=== PATIENT | female | born 1960 | race Caucasian/White ===

== ENCOUNTER → 2016-08-10 | Outpatient (CLI) | payer BC ==
--- NOTE | 2016-08-10 07:58 | MR ---
EXAMINATION TYPE: MR knee RT wo con DATE OF EXAM: 08/10/2016 7:20 AM COMPARISON: NONE HISTORY: Right knee pain TECHNIQUE: Multiplanar, multisequence imaging of the right knee is performed without IV contrast. FINDINGS: MEDIAL MENISCUS: Anterior and posterior horns are intact without tear. LATERAL MENISCUS: Anterior and posterior horns are intact without tear. CRUCIATE LIGAMENTS: The anterior and posterior cruciate ligaments are intact and unremarkable. COLLATERAL LIGAMENTS: The medial collateral ligament and lateral collateral ligament complex are inta ct and unremarkable. EXTENSOR MECHANISM: Visualized quadriceps and patellar tendons are intact. EFFUSION: Small suprapatellar joint effusion. POPLITEAL CYST: 2.5 cm septated Lindquist's cyst. TRICOMPARTMENT SPACES: Mild degenerative narrowing involving the medial tibiofemoral joint space. Mod erate patellofemoral joint space narrowing with increased signal within the patella as well as on car tilaginous thinning compatible changes of chondromalacia patella. CARTILAGE: Small focal cartilaginous defect medial femoral condyle. BONE MARROW SIGNAL: No focal abnormal marrow signal is appreciated. OTHER: No additional significant abnormality is appreciated. IMPRESSION: 1. Degenerative changes of osteoarthritis and chondromalacia patella. 2. Septated Lindquist's cyst. 3. Small joint effusion.
== END | disposition home or self-care (01) ==
LOC: RADMRIMAIN 06:48
PROVIDERS: ATTEND Orthopaedic Surgery
DX: M17.11 Unilateral primary osteoarthritis, right knee (principal); M22.41 Chondromalacia patellae, right knee; M71.21 Synovial cyst of popliteal space [Baker], right knee

== ENCOUNTER → 2016-08-18 | Outpatient (CLI) | payer BC ==
[2016-08-18 10:36] LABS: EKG EKG PERFORMED
[2016-08-18 10:51] LABS: Basophils % (A) 1 %; CH 31.9; CHCM 32.9; Eosinophils # (A) 0.1 k/uL (0-0.7); Eosinophils % (A) 3 %; HCT 40.4 % (34.0-46.0); HDW 2.21; Luc # (Auto) 0.13; Luc % (Auto) 3; Lymphocytes # (A) 1.2 k/uL (1.0-4.8); Lymphocytes % (A) 27 %; MCH 31.2 pg (25.0-35.0); MCHC 32.1 g/dL (31.0-37.0); MCV 97.3 fL (80.0-100.0); Mean Platelet Volume 7.9; Monocytes # (A) 0.3 k/uL (0-1.0); Monocytes % (A) 6 %; Neutrophils # (A) 2.8 k/uL (1.3-7.7); Neutrophils % (A) 61 %; RBC 4.16 m/uL (3.80-5.40); RDW 13.1 % (11.5-15.5); WBC 4.6 k/uL (3.8-10.6); WBC (Perox) 4.53
[2016-08-18 12:10] LABS: Anion Gap 9 mmol/L; Carbon Dioxide 26 mmol/L (22-30); Chloride 104 mmol/L (98-107); Potassium 4.5 mmol/L (3.5-5.1); Sodium 139 mmol/L (137-145)
== END ==
LOC: LABWHC1 10:13
PROVIDERS: ATTEND Orthopaedic Surgery
DX: Z01.810 Encounter for preprocedural cardiovascular examination (principal); Z01.812 Encounter for preprocedural laboratory examination; M23.91 Unspecified internal derangement of right knee
CPT/HCPCS: 80051; 85025; 93005

== ENCOUNTER 2016-09-01 08:56 | Day surgery (SDC) | payer BC ==
[2016-08-30 11:51] VITALS: BMI 26.6
--- NOTE | 2016-08-31 11:48 | HP ---
DATE OF ADMISSION: CHIEF COMPLAINT: Right knee pain. 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 She notes intermittent giving way along with catching. She has pain with prolonged activity. She has been taking anti-inflammatories with partial temporary relief. She notes it does significantly limit her. PAST MEDICAL HISTORY: Significant for breast cancer. PAST SURGICAL HISTORY: Significant for hysterectomy and breast lumpectomy. CURRENT MEDICATIONS: Ibuprofen. She has allergies to BACTRIM and TETRACYCLINE. FAMILY HISTORY: Significant for Sjogren's syndrome, pulmonary embolism, hypertension, diabetes. A sixteen-point review of systems otherwise reviewed and is noncontributory. She notes occasional alcohol use. On examination, the patient is approximately 5 feet 7 inches, 175 pounds of mesomorphic habitus. HEENT exam is nonfocal. Neck is supple. She has painless passive motion of her right hip. Straight leg were raise is negative. Active motion of the right knee is -6 to 95 degrees of flexion. This compares to the left knee with -4 to 135 degrees of flexion. On the right knee she has a large effusion. She is tender about the lateral joint line and lateral patella facet. Collaterals are stable, Ashli's negative, Judith's is equivocal. Her distal neurovascular exam appears to be intact in the right lower extremity. MRI report of the right knee from 08/10/2016 shows questionable chondral injury involving the lateral femoral trochlea and medial femoral condyle. IMPRESSION: Right knee internal derangement with possible patellar and medial femoral condyle chondral injuries. RECOMMENDATIONS: I talked to the patient and her regarding her treatment options. She is having significant pain and mechanical symptoms that limit her. After thorough discussion, they opt to proceed with surgery. We will plan to proceed with arthroscopic evaluation, possible patellar chondroplasty and medial femoral condyle chondroplasty. Risks and benefits are discussed at length in layman's terms. We will likely perform that as an outpatient procedure. RUDOLPH
[~2016-09-01 08:56] MED LIST: DEXAMETHASONE SOD PHOSPHATE 10 MG/ML 1 ML VIAL IV ONE; LACTATED RINGERS 1,000 ML IV SCH; MIDAZOLAM 2 MG/2 ML VIAL IV PRN; SCOPOLAMINE 1.5MG/72HR PATCH TRANSDERM ONE; ceFAZolin 2 GM in SODIUM CHLORIDE 0.9% 100 ML IVPB ONE
[2016-09-01 09:24] VITALS: RESP 16
[2016-09-01] MEDS ORDERED: LIDOCAINE 1% 20 ML VIAL (10MG/ML) FOR IV START INTRADERMA ONE (09:30)
[2016-09-01] MEDS: ONDANSETRON 4 MG/2 ML VIAL IVP ONE ×2 (09:30→11:03)
[2016-09-01] MEDS ORDERED: MIDAZOLAM 2 MG/2 ML VIAL ONE (10:00)
[2016-09-01] MEDS ORDERED: KETOROLAC 30 MG/ML 1 ML VIAL ONE (10:00)
[2016-09-01] MEDS ORDERED: fentaNYL (PF) 50 MCG/ML 2 ML AMP ONE (10:00)
[2016-09-01] MEDS ORDERED: PROPOFOL 10 MG/ML 20 ML VIAL IV ONE (10:00)
[2016-09-01] MEDS ORDERED: LIDOCAINE 1% INJ 10MG/ML (20 ML MDV) ONE (10:00)
[2016-09-01 10:50] VITALS: TEMP 97
[2016-09-01] MEDS: HYDROmorphone 1 MG/ML 1 ML SYRINGE IVP PRN ×4 (10:54→11:08)
--- NOTE | 2016-09-01 10:54 | P.OP ---
Date of Procedure: 09/01/16 Preoperative Diagnosis: Right knee internal derangement Postoperative Diagnosis: Right knee grade 3/4 chondral defect posterior medial femoral condyle/grade 2/3 chondral injury medial patellar facet/reactive synovitis Procedure(s) Performed: Right knee arthroscopic medial femoral chondrectomy/microfracture medial femoral condyle/patellar chondroplasty Anesthesia: JACKI Surgeon: Ramirez Domingo Estimated Blood Loss (ml): 5 Pathology: none sent Condition: stable Disposition: PACU Indications for Procedure: The patient is a 56-year-old female who presents with progressive right knee pain and mechanical symptoms despite conservative measures. A discussion of the risks and benefits of operative intervention versus continued conservative measures was made with the patient. She opted to proceed with surgery. Operative risks to include infection, neurovascular injury, development of blood clots, possible incomplete resolution of symptoms, possible worsening symptoms and need for subsequent procedures was discussed. Informed consent was obtained. Operative Findings: As below Description of Procedure: The patient was brought to the operating room, and after induction of general anesthesia I examined the right knee. Collaterals were stable, Ashli was negative, and posterior drawer was negative. The right lower extremity was prepped and draped in normal fashion. A superior lateral portal was made through a 3 mm skin incision superior and lateral to the patella. This was used for outflow. A moderate effusion was encountered. A lateral portal was made above the level of the joint line through a 5 mm skin incision lateral to the patella tendon. Diagnostic arthroscopy was performed. A medial portal was made through a similar incision medial to the patella tendon above the joint line. On inspection of the medial compartment, the medial meniscus appeared to be stable and intact. She had an 8 x 10 mm grade 3/4 chondral defect involving the posterior medial aspect of the medial femoral condyle. There was a loose chondral flap component. This was debrided back to stable base with a motorized shaver. I elected proceed with microfracture this point. A chondral was used to breach the subchondral surface. Several holes were made. A grade 2 /3 chondral defect involving the anterior medial portion of the medial femoral condyle was noted. The edges were contoured back with a motorized shaver. On inspection of the notch, the anterior cruciate ligament appeared to be intact. On inspection of the lateral compartment no significant meniscal or cartilage pathology was noted. On inspection of the patellofemoral articulation, grade 2- 3 chondral changes were noted diffusely. A grade 3 chondral injury with a loose chondral flap was noted involving the medial patella facet and this was debrided back to a stable base with a motorized shaver. The gutters were clear debris. The knee was then thoroughly irrigated. The portals were closed with Steri-Strips. A sterile dressing was applied in addition to a compression stocking. The patient was awoken from general anesthesia and transferred to recovery room in good condition. Blood loss was estimated at 10 mL. No complications were incurred.
[2016-09-01 13:48] VITALS: BP 116/79; PULSE 63
== END 2016-09-01 14:57 | disposition home or self-care (01) ==
LOC: OR 08:56
PROVIDERS: ATTEND Orthopaedic Surgery
DX: M23.91 Unspecified internal derangement of right knee (principal); S89.92XA Unspecified injury of left lower leg, initial encounter; M65.861 Other synovitis and tenosynovitis, right lower leg
CPT/HCPCS: 29879; J2250; J1100; J0690; J2405; J2001; J3010; J1885; J1170; J2704

== ENCOUNTER → 2017-10-03 | Outpatient (CLI) | payer BC ==
--- NOTE | 2017-10-03 19:04 | BD ---
EXAMINATION TYPE: MG DEXA axial skeleton. DATE OF EXAM: 10/03/2017 CLINICAL HISTORY: 57-year-old female postmenopausal screening, osteopenia Height: 76 inches Weight: 173 FRAX RISK QUESTIONS: Alcohol (3 or more units per day): no Family History (Parent hip fracture): no Glucocorticoids (More than 3mos): no (Ex: prednisone, prednisolone, methylprednisolone, dexamethasone, and hydrocortisone). History of Fracture in Adulthood: yes Secondary Osteoporosis: 1. Type 1 Diabetes: no 2. Hyperthyroidism: no 3. Menopause before 45: no 4. Malnutrition: no 5. Chronic liver disease: no Rheumatoid Arthritis: no Current Tobacco Use: no RISK FACTORS HISTORY OF: History of Wrist Fracture: yes, right When: 2010 Family History of Osteoporosis: unsure Active: yes Diet low in dairy products/other sources of calcium: no Postmenopausal woman: yes Take estrogen and/or progesterone medications: no Lost more than 2 inches in height since high school: no Frequent falls: no Poor Health: no Hyperparathyroidism: no Adrenal Insufficiency: no MEDICATIONS: Prednisone or other steroids: no Thyroid Medications: no Osteoporosis Medications: no Additional Medications: calcium Additional History: Breast CA 2010, took antineoplastic for about five years EXAM MEASUREMENTS: Bone mineral densitometry was performed using the [employer] System. Bone mineral density as measured about the Lumbar spine is: ----- L1-L4(G/cm2): 1.069 T Score Values are as follows: ----- L2: -1.4 ----- L3: -0.9 ----- L4: -0.5 ----- L1-L4: -0.9 Bone mineral density has: Decreased -1.1% since study of: 06/17/2014 Bone mineral density about the R hip (g/cm2): 0.936 Bone mineral density about the L hip (g/cm2): 0.924 T Score values are as follows: -----R Neck: -0.7 -----L Neck: -0.8 -----R Total: -0.8 -----L Total: -0.8 Bone mineral density has: Decreased -2.7% since study of: 06/17/2014 IMPRESSION: Osteopenia (T Score between -2.5 and -1) (averaged T score values of L1 and L2). There is slightly increased risk of fracture and the patient may be considered for treatment. Re-Screen 2-5 years. NOTE: T-SCORE=SD OF THE YOUNG ADULT MEAN.
== END | disposition home or self-care (01) ==
LOC: RADBDWWP 12:31
PROVIDERS: ATTEND Internal Medicine Hematology & Oncology
DX: M85.80 Other specified disorders of bone density and structure, unspecified site (principal); C50.412 Malignant neoplasm of upper-outer quadrant of left female breast; N95.1 Menopausal and female climacteric states
CPT/HCPCS: 77080

== ENCOUNTER 2018-07-09 14:59 | Emergency (ER) | payer BC ==
[2018-07-09 15:24] VITALS: BP 131/89; PULSE 84; RESP 18; TEMP 98.4
--- NOTE | 2018-07-09 17:29 | US ---
EXAMINATION TYPE: US venous doppler duplex LE RT DATE OF EXAM: 07/09/2018 5:04 PM COMPARISON: NONE CLINICAL HISTORY: Pain. recent right foot surgery, now pain and swelling in right leg SIDE PERFORMED: Right TECHNIQUE: The lower extremity deep venous system is examined utilizing real time linear array sonog greyson with graded compression, doppler sonography and color-flow sonography. VESSELS IMAGED: External Iliac Vein (EIV) Common Femoral Vein Deep Femoral Vein Greater Saphenous Vein * Femoral Vein Popliteal Vein Small Saphenous Vein * Proximal Calf Veins (* superficial vessels) FINDINGS: Grayscale, color doppler, spectral doppler imaging performed of the deep veins of the right lower extremity. Internal echoes seen with not fully compressible vein contiguously from the level o f the proximal right femoral vein down through distal right popiteal vein. Results discussed with the ordering provider in order to help to ensure intact communications. IMPRESSION: POSITIVE FOR ACUTE DVT THROUGHOUT THE DEEP VENOUS ANATOMY OF THE RIGHT THIGH.
[2018-07-09] MEDS ORDERED: APIXABAN 5 MG TAB PO STA (17:37)
--- NOTE | 2018-07-09 17:37 | ED ---
Extremity Problem HPI - General Chief complaint: Extremity Problem,Nontraumatic Stated complaint: post foot surgery/pain & swelling Time Seen by Provider: 07/09/18 17:26 Source: patient, RN notes reviewed, old records reviewed Mode of arrival: wheelchair Limitations: no limitations - History of Present Illness Initial comments: This is a 58-year-old female the ER for evaluation. Patient coming in for right lower extremity edema pain and swelling. Patient's concerned she may have blood clot. Patient does have recent history of foot surgery. No shortness of breath no chest pain. No prior history of DVT MD Complaint: extremity pain, extremity swelling -: days(s) Location: right, lower extremity History of Same: No Radiation: none Severity scale (1-10): 3 Quality: aching Consistency: constant Improves with: nothing Worsens with: weight bearing Associated Symptoms: denies other symptoms - Related Data Home Medications Medication Instructions Recorded Confirmed cycloSPORINE [Restasis] 1 applicator BOTH EYES BID 09/01/16 09/01/16 Previous Rx's Medication Instructions Recorded Hydrocodone/Acetaminophen [[place] 1 each PO Q6HR PRN #20 tab 09/01/16 5-325] Apixaban [Eliquis] 5 mg PO BID #60 tablet 07/09/18 Apixaban [Eliquis] 10 mg PO BID #28 tab 07/09/18 Allergies Allergy/AdvReac Type Severity Reaction Status Date / Time sulfamethoxazole Allergy Rash/Hives Verified 07/09/18 15:24 [From Bactrim] tetracycline Allergy Chest Pain Verified 07/09/18 15:24 trimethoprim [From Bactrim] Allergy Rash/Hives Verified 07/09/18 15:24 Review of Systems ROS Statement: Those systems with pertinent positive or pertinent negative responses have been documented in the HPI. ROS Other: All systems not noted in ROS Statement are negative. Past Medical History Past Medical History: No Reported History History of Any Multi-Drug Resistant Organisms: None Reported Past Surgical History: Breast Surgery, Hysterectomy, Orthopedic Surgery Additional Past Surgical History / Comment(s): lumpectomy Past Psychological History: No Psychological Hx Reported Smoking Status: Never smoker Past Alcohol Use History: Occasional Past Drug Use History: None Reported General Exam Limitations: no limitations General appearance: alert, in no apparent distress Head exam: Present: atraumatic, normocephalic, normal inspection Eye exam: Present: normal appearance, PERRL, EOMI. Absent: scleral icterus, conjunctival injection, periorbital swelling ENT exam: Present: normal exam, mucous membranes moist Neck exam: Present: normal inspection. Absent: tenderness, meningismus, lymphadenopathy Respiratory exam: Present: normal lung sounds bilaterally. Absent: respiratory distress, wheezes, rales, rhonchi, stridor Cardiovascular Exam: Present: regular rate, normal rhythm, normal heart sounds. Absent: systolic murmur, diastolic murmur, rubs, gallop, clicks GI/Abdominal exam: Present: soft, normal bowel sounds. Absent: distended, tenderness, guarding, rebound, rigid Extremities exam: Present: normal inspection, full ROM, normal capillary refill , other (All). Absent: tenderness, pedal edema, joint swelling, calf tenderness Back exam: Present: normal inspection Neurological exam: Present: alert, oriented X3, CN II-XII intact Psychiatric exam: Present: normal affect, normal mood Skin exam: Present: warm, dry, intact, normal color. Absent: rash Course Vital Signs 07/09/18 15:20 Temperature 98.4 F Pulse Rate 84 Respiratory 18 Rate Blood Pressure 131/89 O2 Sat by Pulse 98 Oximetry - Reevaluation(s) Reevaluation #1: 07/09/18 17:33 Medical record is reviewed Reevaluation #2: 07/09/18 17:33 Patient is given Alquist can be discharged home Medical Decision Making - Medical Decision Making 58 female the ER for evaluation. Patient has positive DVT postop DVT, patient prescribed Alquist can be discharged home Disposition Clinical Impression: Deep vein thrombosis of lower extremity Disposition: HOME SELF-CARE Condition: Good Instructions (If sedation given, give patient instructions): Deep Vein Thrombosis (ED) Prescriptions: Apixaban [Eliquis] 10 mg PO BID #28 tab Apixaban [Eliquis] 5 mg PO BID #60 tablet Is patient prescribed a controlled substance at d/c from ED?: No Referrals: Beka Garcia DO [Primary Care Provider] - 1-2 days
== END 2018-07-09 18:45 | disposition home or self-care (01) ==
LOC: EC 14:59
DX: I82.411 Acute embolism and thrombosis of right femoral vein (principal); I82.431 Acute embolism and thrombosis of right popliteal vein; Z88.2 Allergy status to sulfonamides; Z88.1 Allergy status to other antibiotic agents
CPT/HCPCS: 99284

== ENCOUNTER → 2018-07-25 | Outpatient (CLI) | payer BC ==
[2018-07-26 10:50] LABS: Protein C (Activity) 86 % (71-138)
[2018-07-26 11:21] LABS: Anti-Thrombin III Activity 129 % (79-109)
[2018-07-26 13:44] LABS: Free Protein S Antigen 95 % (50 - 147)
[2018-07-26 13:52] LABS: APTT 42 Sec(s) (<43); DRVVT 1:1 Mix 45 Sec(s) (<44); DRVVT Confirmation Negative (Negative); Dilute Russell Viper Venom 56 Sec(s) (<44)
== END | disposition home or self-care (01) ==
LOC: LABWHC1 13:53
PROVIDERS: ATTEND Family Medicine
DX: I82.409 Acute embolism and thrombosis of unspecified deep veins of unspecified lower extremity (principal)
CPT/HCPCS: 36415; 85300; 85303; 85306; 85613; 85730

== ENCOUNTER → 2020-04-21 | Outpatient (CLI) | payer BC ==
--- NOTE | 2020-04-21 14:09 | BD ---
EXAMINATION TYPE: Axial Bone Density DATE OF EXAM: 04/21/2020 COMPARISON: NONE CLINICAL HISTORY: Height: 5 FT 7 IN Weight: 172 FRAX RISK QUESTIONS: Alcohol (3 or more units per day): NO Family History (Parent hip fracture): NO Glucocorticoids (More than 3mos): NO (Ex: prednisone, prednisolone, methylprednisolone, dexamethasone, and hydrocortisone). History of Fracture in Adulthood: YES Secondary Osteoporosis: 1. Type 1 Diabetes: NO 2. Hyperthyroidism: NO 3. Menopause before 45: NO 4. Malnutrition: NO 5. Chronic liver disease: NO Rheumatoid Arthritis: NO Current Tobacco Use: NO RISK FACTORS HISTORY OF: Family History of Osteoporosis: NO Active: YES Diet low in dairy products/other sources of calcium: NO Postmenopausal woman: PART HYST AGE 49 OVARIES REMOVED AGE 50 Take estrogen and/or progesterone medications: NONE Lost more than 2 inches in height since high school: NO MEDICATIONS: Additional Medications: NONE Additional History: BREAST CANCER 2010 RADIATION AND CHEMO EXAM MEASUREMENTS: Bone mineral densitometry was performed using the [employer] System. Bone mineral density as measured about the Lumbar spine is: ----- L1-L4(G/cm2): 1.050 T Score Values are as follows: ----- L2: -1.9 ----- L3: -0.9 ----- L4: -0.4 ----- L1-L4: -1.1 Bone mineral density has: DECREASED -1.1 % since study of: 2017 Bone mineral density about the R hip (g/cm2): 0.885 Bone mineral density about the L hip (g/cm2): 0.909 T Score values are as follows: -----R Neck: -1.1 -----L Neck: -0.9 -----R Total: -1.2 -----L Total: -0.9 Bone mineral density has: DECREASED -3.6 % since study of: 2018 IMPRESSION: Osteopenia right hip NOTE: T-SCORE=SD OF THE YOUNG ADULT MEAN.
== END | disposition home or self-care (01) ==
LOC: RADBDWWP 09:52
PROVIDERS: ATTEND Internal Medicine Hematology & Oncology
DX: M85.88 Other specified disorders of bone density and structure, other site (principal); Z88.1 Allergy status to other antibiotic agents; Z88.2 Allergy status to sulfonamides
CPT/HCPCS: 77080

== ENCOUNTER → 2022-05-17 | Outpatient (CLI) | payer BC ==
--- NOTE | 2022-05-17 16:11 | BD ---
EXAMINATION TYPE: Axial Bone Density DATE OF EXAM: 05/17/2022 COMPARISON: CLINICAL HISTORY: 62 years old Female. ICD-10 CODE: M85.80 oth disorders of bne density/structure Height: 66.5 Weight: 169 FRAX RISK QUESTIONS: Family History (Parent hip fracture): NO History of Fracture in Adulthood: YES RT WRIST 2010 Secondary Osteoporosis: NO Rheumatoid Arthritis: NO RISK FACTORS HISTORY OF: Family History of Osteoporosis: YES GRANDMA MAT Active: YES Diet low in dairy products/other sources of calcium: NO Postmenopausal woman: YES Lost more than 2 inches in height since high school: NO Frequent falls: NO Poor Health: NO Hyperparathyroidism: NO Adrenal Insufficiency: NO MEDICATIONS: Additional History: YES BREAST CANCER 2010 RADIATION AND CHEMO, VIT D , VIT B , CALCIUM EXAM MEASUREMENTS: Bone mineral densitometry was performed using the [employer] System. Bone mineral density as measured about the Lumbar spine is: ----- L1-L4(G/cm2): 1.059 T Score Values are as follows: ----- L1: -1.4 ----- L2: -1.6 ----- L3: -0.7 ----- L4: -0.6 ----- L1-L4: -1.0 Bone mineral density has: Increased 0.9% since study of: 10/03/2017 Bone mineral density about the R hip (g/cm2): 0.854 Bone mineral density about the L hip (g/cm2): 0.864 T Score values are as follows: -----R Neck: -1.0 -----L Neck: -1.0 -----R Total: -1.2 -----L Total: -1.1 Bone mineral density has: Decreased -1.5% since study of: 10/03/2017 FRAX%s: The graph provided illustrates a 12.5% chance for a major osteoporotic fx and a 0.8% chance for the hips probability for fx in 10 years time. IMPRESSION: Osteopenia (T Score between -2.5 and -1). There is slightly increased risk of fracture and the patient may be considered for treatment. Re-Screen 2-5 years. NOTE: T-SCORE=SD OF THE YOUNG ADULT MEAN.
== END | disposition home or self-care (01) ==
LOC: RADBDWWP 11:18
PROVIDERS: ATTEND Family Medicine
DX: M85.89 Other specified disorders of bone density and structure, multiple sites (principal); Z85.3 Personal history of malignant neoplasm of breast
CPT/HCPCS: 77080

== ENCOUNTER → 2024-05-19 | Outpatient (CLI) | payer BC ==
--- NOTE | 2024-05-19 13:13 | BD ---
EXAMINATION TYPE: Axial Bone Density DATE OF EXAM: 05/19/2024 CLINICAL HISTORY: 64 years old Female. ICD-10 CODE: Z78.0 ASYMPTOMATIC MENOPAUSAL STATE , Additional History: Height: 66 Weight: 159 FRAX RISK QUESTIONS: History of Fracture in Adulthood: yes Secondary Osteoporosis: RISK FACTORS HISTORY OF: History of Wrist Fracture: right When: 2010 MEDICATIONS: EXAM MEASUREMENTS: Bone mineral densitometry was performed using the [employer] System. Bone mineral density as measured about the Lumbar spine is: ----- L1-L4(G/cm2): 1.130 T Score Values are as follows: ----- L1: -1.1 ----- L2: -1.6 ----- L3: 0.3 ----- L4: 0.3 ----- L1-L4: -0.4 Z Score Values are as follows: ----- L1: 0.1 ----- L2: -0.4 ----- L3: 1.4 ----- L4: 1.5 ----- L1-L4: 0.8 Bone mineral density has: Increased 6.7% since study of: 05-17-22 Bone mineral density about the R hip (g/cm2): 0.867 Bone mineral density about the L hip (g/cm2): 0.857 T Score values are as follows: -----R Neck: -0.8 -----L Neck: -1.1 -----R Total: -1.1 -----L Total: -1.2 Z Score values are as follows: -----R Neck: 0.4 -----L Neck: 0.1 -----R Total: -0.2 -----L Total: -0.3 Bone mineral density has: Increased 0.3% since study of: 05-17-22 FRAX%s: The graph provided illustrates a 13.2% chance for a major osteoporotic fx and a 0.9% chance f or the hips probability for fx in 10 years time. IMPRESSION: Osteopenia (T Score between -2.5 and -1). There is slightly increased risk of fracture and the patient may be considered for treatment. Re-Screen 2-5 years. NOTE: T-SCORE=SD OF THE YOUNG ADULT MEAN. [facility], , 05/19/2024 1:10 PM
== END | disposition home or self-care (01) ==
LOC: RADBDWWP 09:58
PROVIDERS: ATTEND Family Medicine
DX: Z78.0 Asymptomatic menopausal state (principal); M85.89 Other specified disorders of bone density and structure, multiple sites
CPT/HCPCS: 77080